=== PATIENT | male | born 1945 | race Native Hawaiian/Other Pacific Islander ===

== ENCOUNTER 2017-01-14 16:23 | Outpatient (CLI) | payer OTHER, MEDICARE | END 2017-01-14 19:10 | disposition home or self-care (01) | LOC: LABW 16:23 | DX: Z94.0 Kidney transplant status (principal); Z79.899 Other long term (current) drug therapy; Z51.81 Encounter for therapeutic drug level monitoring | CPT/HCPCS: 81000; 87077; 87086; 87088; 87186 ==

== ENCOUNTER 2017-01-25 12:10 | Outpatient (CLI) | payer OTHER, MEDICARE | END 2017-01-25 19:37 | disposition home or self-care (01) | LOC: LABW 12:10 | DX: Z94.0 Kidney transplant status (principal); Z79.899 Other long term (current) drug therapy; Z51.81 Encounter for therapeutic drug level monitoring | CPT/HCPCS: 81000; 87077; 87086; 87088; 87186 ==

== ENCOUNTER 2017-02-14 11:12 | Outpatient (CLI) | payer OTHER, MEDICARE | END 2017-02-14 12:15 | disposition home or self-care (01) | LOC: LABW 11:12 | DX: Z94.0 Kidney transplant status (principal); Z79.899 Other long term (current) drug therapy; Z51.81 Encounter for therapeutic drug level monitoring | CPT/HCPCS: 81000; 87077; 87086; 87088; 87186 ==

== ENCOUNTER 2017-03-02 11:16 | Outpatient (CLI) | payer OTHER, MEDICARE | END 2017-03-02 19:55 | disposition home or self-care (01) | LOC: LABW 11:16 | DX: Z94.0 Kidney transplant status (principal); Z79.899 Other long term (current) drug therapy; Z51.81 Encounter for therapeutic drug level monitoring | CPT/HCPCS: 81000; 87077; 87086; 87088; 87186 ==

== ENCOUNTER 2017-09-30 10:27 | Outpatient (CLI) | payer OTHER, MEDICARE ==
[2017-09-30 10:54] LABS: PLATELET COUNT 222 K/uL (142-355)
[2017-09-30 11:10] LABS: POTASSIUM 4.1 mmol/L (3.6-5.2)
== END 2017-09-30 18:00 | disposition home or self-care (01) ==
LOC: LABW 10:27
PROVIDERS: Transplant Surgery
DX: Z94.0 Kidney transplant status (principal); Z79.899 Other long term (current) drug therapy; Z51.81 Encounter for therapeutic drug level monitoring
CPT/HCPCS: 36415; 80053; 80197; 81000; 83036; 83735; 83970; 84100; 85027; 87077; 87086; 87088; 87185; 87186

== ENCOUNTER 2017-10-11 08:48 | Outpatient (CLI) | payer OTHER, MEDICARE ==
[2017-10-11 09:05] LABS: PLATELET COUNT 203 K/uL (142-355)
[2017-10-11 09:17] LABS: POTASSIUM 3.9 mmol/L (3.6-5.2)
== END 2017-10-11 22:53 | disposition home or self-care (01) ==
LOC: LABW 08:48
PROVIDERS: Internal Medicine Nephrology
DX: Z94.0 Kidney transplant status (principal); Z79.899 Other long term (current) drug therapy; Z51.81 Encounter for therapeutic drug level monitoring
CPT/HCPCS: 36415; 80053; 80197; 81000; 83735; 84100; 85027; 87088

== ENCOUNTER 2017-12-23 09:42 | Outpatient (CLI) | payer OTHER, MEDICARE ==
[2017-12-23 10:30] LABS: PLATELET COUNT 229 K/uL (142-355)
[2017-12-23 11:40] LABS: POTASSIUM 3.6 mmol/L (3.6-5.2)
== END 2017-12-23 19:43 | disposition home or self-care (01) ==
LOC: LABW 09:42
PROVIDERS: Internal Medicine Nephrology
DX: E83.39 Other disorders of phosphorus metabolism (principal); N39.0 Urinary tract infection, site not specified; E83.42 Hypomagnesemia
CPT/HCPCS: 36415; 80053; 80197; 81000; 83735; 84100; 85027; 87077; 87086; 87088; 87186

== ENCOUNTER 2018-01-09 11:12 | Outpatient (CLI) | payer OTHER, MEDICARE ==
[2018-01-09 11:30] LABS: PLATELET COUNT 162 K/uL (142-355)
[2018-01-09 11:39] LABS: POTASSIUM 4.1 mmol/L (3.6-5.2)
== END 2018-01-09 22:12 | disposition home or self-care (01) ==
LOC: LABW 11:12
PROVIDERS: Internal Medicine Nephrology
DX: Z94.0 Kidney transplant status (principal); R82.99 Other abnormal findings in urine
CPT/HCPCS: 36415; 80053; 80197; 81000; 83735; 84100; 85027; 87088

== ENCOUNTER 2018-03-17 09:46 | Outpatient (CLI) | payer OTHER, MEDICARE | END 2018-03-17 19:23 | disposition home or self-care (01) | LOC: LABW 09:46 | DX: Z94.0 Kidney transplant status (principal); Z79.899 Other long term (current) drug therapy | CPT/HCPCS: 36415; 80197 ==

== ENCOUNTER 2018-05-01 08:39 | Outpatient (CLI) | payer OTHER, MEDICARE ==
[2018-05-01 09:54] LABS: POTASSIUM 3.3 mmol/L (3.6-5.2)
== END 2018-05-01 19:15 | disposition home or self-care (01) ==
LOC: LABW 08:39
PROVIDERS: Internal Medicine Nephrology
DX: Z94.0 Kidney transplant status (principal); Z79.899 Other long term (current) drug therapy
CPT/HCPCS: 36415; 80048

== ENCOUNTER 2018-05-12 11:09 | Outpatient (CLI) | payer OTHER, MEDICARE ==
[2018-05-12 11:32] LABS: PLATELET COUNT 172 K/uL (142-355)
[2018-05-12 12:03] LABS: PARTIAL THROMBOPLASTIN TIME 33.4 SECONDS (24.5-33.6)
[2018-05-12 12:05] LABS: POTASSIUM 3.9 mmol/L (3.6-5.2)
== END 2018-05-12 19:30 | disposition home or self-care (01) ==
LOC: LABW 11:09
PROVIDERS: Internal Medicine Cardiovascular Disease
DX: I47.2 Ventricular tachycardia (principal); Z79.02 Long term (current) use of antithrombotics/antiplatelets; Z51.81 Encounter for therapeutic drug level monitoring
CPT/HCPCS: 36415; 80048; 85027; 85610; 85730

== ENCOUNTER 2018-08-18 10:35 | Outpatient (CLI) | payer OTHER, MEDICARE | END 2018-08-18 22:49 | disposition home or self-care (01) | LOC: LABW 10:35 | DX: Z94.0 Kidney transplant status (principal); Z79.899 Other long term (current) drug therapy | CPT/HCPCS: 36415; 80197 ==